=== PATIENT | female | born 1945 | race Caucasian/White ===

== ENCOUNTER 2021-07-13 09:19 | Inpatient (IN) | payer OTHER ==
[~2021-07-13] VITALS: Ht 172.7 cm; Wt 99.8 kg
[2021-07-13 09:29] VITALS: BP 126/107
[2021-07-13 10:07] LABS: ABSOLUTE NEUTROPHILS 3.6 thou/uL (1.4-8.2); EOSINOPHILS 3.9 % (0.0-3.0); HEMATOCRIT 44.7 % (37.0-47.0); HEMOGLOBIN 14.9 gm/dL (12.0-15.0); LYMPHOCYTES 27.7 % (24.0-44.0); MCH 29.8 pg (26.0-34.0); MCHC 33.3 g/dL (28.0-37.0); MCV 89.4 fL (80.0-100.0); MONOCYTES 8.3 % (1.0-8.0); PLATELET COUNT 307 thou/uL (150-400); POLYS 59.1 % (36.0-66.0); RDW 13.6 % (10.5-14.5); WBC 6.1 thou/uL (4.0-11.0)
[2021-07-13 10:25] LABS: CALCIUM 9.2 mg/dL (8.5-10.1); CREATININE 1.1 mg/dL (0.6-1.0); POTASSIUM 3.9 mmol/L (3.5-5.1)
[2021-07-13 11:19] VITALS: BP 178/101
--- NOTE | 2021-07-13 11:37 | EKG ---
[address] [address] ELECTROCARDIOGRAM REPORT Name: VENTURA ALY Room #: 170-6 ADM IN .R.#: [id number] Admission: 07/13/21 Attend Phys: Madyson Tipton MD Discharge: Date of : 49 Report #: [id number] [facility] ED Test Date: 2021-07-13 Test Time: 09:32:36 Pat Name: VENTURA ALY Department: Room: 170 Gender: F Computer Assistant: CELESTE : 1945 Requested By: Madyson Tipton Order Number: [id number] MD: Omer Wilhelm Measurements Intervals [place] Rate: 126 P: DE: QRS: 23 QRSD: 88 T: 2 QT: 323 QTc: 468 Interpretive Statements Atrial fibrillation Poor R wave progression No previous ECG available for comparison Electronically Signed On 07-13-2021 11:36:55 CDT by Omer Wilhelm [email or web address] <ELECTRONICALLY SIGNED> By: Omer Wilhelm MD, [facility] 07/13/21 1136 [id number] 1 Omer Wilhelm MD, [facility] /EPI
[2021-07-13] MEDS ORDERED: PROTONIX40 M2 PO (14:13)
[2021-07-13] MEDS ORDERED: TIMOLOL MALEATE5 M1 OPHTHALMIC (14:13)
[2021-07-13] MEDS ORDERED: LUMIGAN2.5 M1 OP (14:15)
[2021-07-13] MEDS ORDERED: ATORVASTATIN CA10 MG PO (14:17)
[2021-07-13] MEDS ORDERED: LISINOPRIL-HCT1 EAC1 PO (14:17)
[2021-07-13] MEDS ORDERED: CELEXA 10 MG TA10 M1 PO (14:18)
[2021-07-13] MEDS ORDERED: BREZTRI AEROS10.7 GM INH (14:20)
[2021-07-13] MEDS ORDERED: ASA81BEC PO (14:20)
--- NOTE | 2021-07-13 14:28 | NUR ---
PER PHARMACY - CEFTRIAXONE AND DILTIAZEM CAN BE ADMINISTERED INT THE SAME IV AT THE SAME TIME.
[2021-07-13 14:56] VITALS: BP 121/63
[2021-07-13 15:15] VITALS: BP 170/84
--- NOTE | 2021-07-13 15:55 | NUR ---
PT ARRIVED TO UNIT AT 1500. PT ARRIVED VIA ER STRECHER. PTS VS OBTAINED AND ARE STABLE. PT IS ORIENTED TO UNIT AND PROCEEDURES. PTS CARDIZEM DRIP IS RUNNING AT 10MG/HR PTS HR IS IN THE 90'S AND PT IS STILL IN AFIB. PT IS ORENTED TO ROOM AND OFFERED FOOD AND DIRNK. WILL CONTINUE TO MONITOR.
[2021-07-13 20:52] VITALS: BP 124/92
[2021-07-14 00:32] VITALS: BP 146/57
[2021-07-14 03:11] LABS: ABSOLUTE NEUTROPHILS 2.2 thou/uL (1.4-8.2); BASOPHILS 0.7 % (0.0-2.0); EOSINOPHILS 3.5 % (0.0-3.0); HEMATOCRIT 39.9 % (37.0-47.0); HEMOGLOBIN 13.5 gm/dL (12.0-15.0); LYMPHOCYTES 40.2 % (24.0-44.0); MCH 30.4 pg (26.0-34.0); MCHC 33.8 g/dL (28.0-37.0); MONOCYTES 9.1 % (1.0-8.0); PLATELET COUNT 243 thou/uL (150-400); POLYS 46.5 % (36.0-66.0); RBC 4.43 mil/uL (4.20-5.00); RDW 13.9 % (10.5-14.5); WBC 4.7 thou/uL (4.0-11.0)
[2021-07-14 03:33] LABS: CALCIUM 8.7 mg/dL (8.5-10.1); CREATININE 0.9 mg/dL (0.6-1.0); MAGNESIUM 1.8 mg/dL (1.8-2.4); PHOSPHORUS 3.7 mg/dL (2.5-4.9); POTASSIUM 3.6 mmol/L (3.5-5.1); TOTAL BILIRUBIN 0.5 mg/dL (0.2-1.0); TOTAL PROTEIN 6.4 g/dL (6.4-8.2)
[2021-07-14 04:13] VITALS: BP 130/95
--- NOTE | 2021-07-14 04:48 | NUR ---
ASSUMED PT CARE AT 1900, ALERT AND ORIENTEDX4, REMAINS AFIB ON TELE, ON CARDIZEM GTT, TITRATED PER PROTOCOL, NOW ON 10ML/HR, BP STABLE, DENIES PAIN OR SOA, ASSESSMENTS CHARTED, NO DISTRESS NOTED, WILL CONTINUE TO MONITOR PER POC
[2021-07-14 08:00] VITALS: BP 135/75
[2021-07-14] MEDS ORDERED: ELIQUIS5 MG PO (10:07)
[2021-07-14] MEDS ORDERED: CARDIZEM CD120 MG PO (10:07)
[2021-07-14 12:05] VITALS: BP 139/83
[2021-07-14 15:14] VITALS: BP 139/83
--- NOTE | 2021-07-14 16:03 | NUR ---
ORDER FOR DISCHARGE IN. PT AWARE OF NEW MEDS. INFORMATION ABOUT NEW MED GIVEN TO PT. IV AND TELE D/C. ALL BELONGINGS WITH PT. PT AWARE OF ALL APPTS. DENIES ANY QUESTIONS. WAITING ON PT RIDE TO GET HERE
== END 2021-07-14 16:36 | disposition home or self-care (01) | DRG 308 ==
LOC: ER 09:19 → EROBS 11:09 → 2N 15:46
PROVIDERS: Emergency Medicine; ADMIT Internal Medicine; ATTEND Internal Medicine
DX: I48.91 Unspecified atrial fibrillation (principal); R65.11 Systemic inflammatory response syndrome (SIRS) of non-infectious origin with acute organ dysfunction; N17.9 Acute kidney failure, unspecified; E66.9 Obesity, unspecified; I10 Essential (primary) hypertension; E78.5 Hyperlipidemia, unspecified; K21.9 Gastro-esophageal reflux disease without esophagitis; J45.909 Unspecified asthma, uncomplicated; F32.9 Major depressive disorder, single episode, unspecified; F41.9 Anxiety disorder, unspecified; J32.8 Other chronic sinusitis; Z60.2 Problems related to living alone; Z68.33 Body mass index [BMI] 33.0-33.9, adult; Z82.49 Family history of ischemic heart disease and other diseases of the circulatory system; Z85.3 Personal history of malignant neoplasm of breast; Z80.0 Family history of malignant neoplasm of digestive organs; Z79.82 Long term (current) use of aspirin; Z79.899 Other long term (current) drug therapy
CPT/HCPCS: 10081

== ENCOUNTER → 2021-07-22 | Outpatient (CLI) | payer OTHER ==
[~2021-07-22] MED LIST: ASA81BEC PO; ATORVASTATIN CA10 MG PO; BREZTRI AEROS10.7 GM INH; CARDIZEM CD120 MG PO; CELEXA 10 MG TA10 M1 PO; ELIQUIS5 MG PO; LISINOPRIL-HCT1 EAC1 PO; LUMIGAN2.5 M1 OP; PROTONIX40 M2 PO; TIMOLOL MALEATE5 M1 OPHTHALMIC
== END ==
LOC: SJCVCIMAG 10:07
PROVIDERS: ATTEND Internal Medicine
DX: I08.3 Combined rheumatic disorders of mitral, aortic and tricuspid valves (principal); I48.91 Unspecified atrial fibrillation

== ENCOUNTER → 2021-07-24 | Outpatient (CLI) | payer OTHER | LOC: SJCVC 11:43 | PROVIDERS: ATTEND Internal Medicine | DX: R94.31 Abnormal electrocardiogram [ECG] [EKG] (principal); R00.1 Bradycardia, unspecified; I11.9 Hypertensive heart disease without heart failure; I48.0 Paroxysmal atrial fibrillation; E78.5 Hyperlipidemia, unspecified; F41.9 Anxiety disorder, unspecified; Z79.82 Long term (current) use of aspirin; Z79.899 Other long term (current) drug therapy ==

== ENCOUNTER → 2021-10-30 | Outpatient (CLI) | payer OTHER | LOC: SJCVC 13:36 | PROVIDERS: ATTEND Internal Medicine | DX: R00.1 Bradycardia, unspecified (principal); I48.0 Paroxysmal atrial fibrillation; I10 Essential (primary) hypertension; E78.5 Hyperlipidemia, unspecified; F32.9 Major depressive disorder, single episode, unspecified; F41.9 Anxiety disorder, unspecified; J45.909 Unspecified asthma, uncomplicated; Z79.899 Other long term (current) drug therapy ==